=== PATIENT | female | born 1960 | race Two or more races ===

== ENCOUNTER 2024-12-25 15:22 | Emergency (ER) | payer MEDICAID, SELFPAY ==
[2024-12-25 15:29] VITALS: BP 150/71; PULSE 77; RESP 16; TEMP 36.8; O2SAT 97
[2024-12-25] MEDS: DIPHTH,PERTUSS(ACELL),TET VAC 0.5 ML SYR- ADULT IMi (16:01)
[2024-12-25] MEDS: cefTRIAXone SOD INJ 1,000 MG VIAL 1000 MG IM (16:01)
[2024-12-25] MEDS: LIDOCAINE HCL 1% 20 ML VIAL INFL (16:02)
[2024-12-25] MEDS: LIDOCAINE HCL 1% 20 ML VIAL 2.1 ML INFL (16:02)
--- NOTE | 2024-12-25 16:58 | EDNOTE_ITS ---
Upper Extremity Injury RME/HPI General Chief Complaint: Hand/Wrist Problems Stated Complaint: RIGHT PINKY PAIN SHOOTING UP RIGHT ARM X 1 WK Time Seen by Provider: 12/25/24 15:27 Arrival date/time: 12/25/24 15:22 64-year-old female presents to the Emergency Department today for complaints of infection right hand fifth digit patient reports swelling to the distal aspect of the right hand fifth digit no recent injury reported Limitations: no limitations Related Data Home Medications ?Medication ?Instructions ?Recorded ?Confirmed benazepril 40 mg tablet (Lotensin) 40 mg PO QDAY #0 ta bs 02/22/14 05/02/18 hydrochlorothiazide 25 mg tablet 25 mg PO QAM #0 tabs 02/22/14 05/02/18 nifedipine 30 mg tablet,extended 30 mg PO QDAY ##0 05/02/18 release 24 hr (Procardia XL) Previous Rx's ?Medication ?Instructions ?Recorded amoxicillin 875 mg-potassium 1 tab PO Q12H #20 tabs clavulanate 125 mg tablet (Augmentin) naproxen 500 mg tablet 500 mg PO Q12H #40 tabs 03/12 benzonatate 100 mg capsule 100 mg PO BID PRN cough #14 caps 06/21/22 meloxicam 7.5 mg tablet 7.5 mg PO QDAY #10 tabs 05/27 02/13 cephalexin 500 mg tablet 500 mg PO TID 7 days #21 tab s 12/25/24 ibuprofen 600 mg tablet 600 mg PO Q8H PRN pain #20 t abs 12/25/24 Allergies Allergy/AdvReac Type Severity Reaction Status Date / Time tetracycline Allergy Severe Hives Verified 12/25/24 15:26 Review of Systems Review of Systems Systems Reviewed: All systems reviewed, normal except as documented Constitutional Constitutional: Reports system reviewed and no additional complaints, except as documented, Denies fever(s) and Denies headache(s) Eyes Eyes: Reports system reviewed and no additional complaints, except as documented and Denies blurry vision ENT Ears, Nose, Mouth, and Throat: Reports system reviewed and no additional complaints, except as documented, Denies headache(s), Denies nasal congestion and Denies nasal discharge Cardiovascular Cardiovascular: Reports system reviewed and no additional complaints, except as documented, Denies chest pain and Denies dyspnea Respiratory Respiratory: Reports system reviewed and no additional complaints, except as documented, Denies chest congestion, Denies cough and Denies dyspnea Gastrointestinal Gastrointestinal: Reports system reviewed and no additional complaints, except as documented and Denies abdominal pain Integumentary/Breasts Skin/Breast: Reports system reviewed and no additional complaints, except as documented, Denies rash and Reports other (Swelling dorsal aspect right hand fifth digit discoloration) Neurologic Neurologic: Reports system reviewed and no additional complaints, except as documented, Reports as per HPI and Denies headache(s) Past Medical History Past Medical History NEUROLOGIC: Positive Neurological Disorders (brain anurysm) CARDIAC: Positive Hypertension; Negative Congestive Heart Failure RESPIRATORY: Negative Chronic Obstructive Pulmonary Disease (COPD) GENITOURINARY: Negative Renal Disease ENDOCRINE: Negative Diabetes Mellitus Type 1 or Diabetes Mellitus Type 2 Social History SMOKING STATUS: Light (< 1 pack/day) ED Exam General Limitations: Present no limitations General appearance: Present alert and in no apparent distress Head Head exam: Present atraumatic, normocephalic and normal inspection Eye Eye exam: Present normal appearance, PERRL and EOMI ENT ENT exam: Present normal exam, normal oropharynx and mucous membranes moist Neck Neck exam: Present normal inspection, full ROM and trachea midline Chest Chest inspection: Present normal inspection and symmetric chest wall rise Respiratory Respiratory exam: Present normal lung sounds bilaterally Cardiovascular Cardiovascular exam: Present regular rate, normal rhythm and normal heart sounds Abdominal Exam Abdominal exam: Present soft and normal bowel sounds Extremities Exam Extremities exam: Present full ROM, tenderness, normal capillary refill and other (Pain right hand fifth digit swelling) Back Exam Back exam: Present normal inspection and full ROM Neurological Exam Neurological exam: Present alert, oriented X3, CN II-XII intact, normal gait and reflexes normal; Absent motor sensory deficit Psychiatric Psychiatric exam: Present normal affect and normal mood Skin Skin exam: Present warm, dry and other (Pain right hand fifth digit swelling) Course Quality Measures none Orders Category Date Time Status Set Up Suture Tray STAT Care 12/25/24 15:44 Active Wound Care NOW Care 12/25/24 15:44 Active Lidocaine 1% 20 ml [Xylocaine 1% 20 ML] Med 12/25/24 15:44 Discontinued 2.1 ml INFL X1 ONE Lidocaine 1% 20 ml [Xylocaine 1% 20 ML] Med 12/25/24 15:44 Discontinued 20 ml INFL X1 ONE TET,DIP/PERT AC (Adult)-Tdap [Boostrix Adult (Tdap) Med 12/25/24 15:44 Discontinued Vacc] 0.5 ml IMI .ONCE ONE cefTRIAXone [Rocephin] Med 12/25/24 15:44 Discontinued 1,000 mg IM X1 ONE Vital Signs Vital signs: Vital Signs Temperature 98.2 F 12/25/24 15:29 Pulse Rate 77 12/25/24 15:29 Respiratory Rate 16 12/25/24 15:29 Blood Pressure 150/71 H 12/25/24 15:29 Pulse Oximetry (%) 97 12/25/24 15:29 Oxygen Delivery Method Room Air 12/25/24 15:29 O2 saturation 97% room air with normal limits Procedures -ED Abscess I/D Site: hand Side (if applicable): right Local Anesthetic: lidocaine 1% Amount of anesthesia used (mL): 5 Technique: incised with #11 blade Amount of fluid expressed (mL): 3 Irrigation: Yes Packing used?: none Complications: pain Extremity Injury MDM Narrative MDM Narrative:: 64-year-old female presents to the Emergency Department today for complaints of infection right hand fifth digit patient reports swelling to the distal aspect of the right hand fifth digit no recent injury reported On exam patient has paronychia right hand fifth digit I&D performed patient tolerated well Both blood and pus is expressed from the area patient did have some relief after procedure Patient given Rocephin and tetanus updated Patient discharged home in no distress to follow-up with primary care doctor in the next 24 to 48 hours and for any worsening symptoms to return to the ER immediately Patient data External records reviewed:: [facility] previous records Clinical information provided by:: patient Social determinants that could affect healthcare access:: none Patient has the following chronic illnesses:: None How is presenting disease/condition affected by chronic disease/condition?: no chronic disease Evaluation data The following diagnostics were reviewed and interpreted by me:: other (specify) (N/A) Lab and/or radiology exams considered but not ordered:: Considered not ordered Interpretation Summary: N/A Medications / Prescriptions Medications or Prescriptions considered but not ordered:: Given Medication administrations:: Medication Administration History Discontinued Medications Ceftriaxone Sodium (Ceftriaxone Sod Inj 1,000 Mg Vial) 1,000 mg IM X1 ONE Stop: 12/25/24 15:45 Last Admin: 12/25/24 16:01 Dose: 1,000 mg Documented By: OA Diphtheria/Tetanus/Acell Pertussis (Diphth,Pertuss(Acell),Tet Vac 0.5 Ml Syr- Adult) 0.5 ml IMi .ONCE ONE Stop: 12/25/24 15:45 Last Admin: 12/25/24 16:01 Dose: 0.5 ml Documented By: SHARMILA Lidocaine HCl (Lidocaine Hcl 1% 20 Ml Vial) 20 ml INFL X1 ONE Stop: 12/25/24 15:45 Last Admin: 12/25/24 16:02 Dose: 20 ml Documented By: OA Lidocaine HCl (Lidocaine Hcl 1% 20 Ml Vial) 2.1 ml INFL X1 ONE Stop: 12/25/24 15:45 Last Admin: 12/25/24 16:02 Dose: 2.1 ml Documented By: OA Given Consultations Consultation(s) initiated? (list below): No Diagnosis Upper Extremity Injury Differential Diagnosis: other (Finger sprain, finger pain, abscess, cellulitis, paronychia) Most likely diagnosis given after review of the tests above:: Paronychia Admission Indicated Admission indicated?: not indicated Admission Request Was there a request for admission?: No Disposition Plan Disposition Plan: Discharge Discharge Attestation Discharge Attestation: The patient and all family members were given an opportunity to ask questions and understood the discharge instructions. Discharge instructions specifically effects, indications for sooner follow up or return to the emergency department, and the expected course of current diagnosis. Patient condition: Stable Discharge Plan Plan Patient Disposition: HOME (Self Care) Discharge Disposition comment: Stable Prescriptions/Referrals Prescriptions/Med Rec: New cephalexin 500 mg tablet 500 mg PO TID 7 Days Qty: 21 0RF ibuprofen 600 mg tablet 600 mg PO Q8H PRN (Reason: pain) Qty: 20 0RF No Action nifedipine [Procardia XL] 30 MG/BOTTLE tablet extended release 24 hr 30 mg PO QDAY Qty: 0 hydrochlorothiazide 25 MG tablet 25 mg PO QAM Qty: 0 benazepril [Lotensin] 40 MG tablet 40 mg PO QDAY Qty: 0 naproxen 500 mg tablet 500 mg PO Q12H Qty: 40 0RF Rx Instructions: administer with food or milk amoxicillin-pot clavulanate [Augmentin] 875-125 mg tablet 1 tab PO Q12H Qty: 20 0RF benzonatate 100 mg capsule 100 mg PO BID PRN (Reason: cough) Qty: 14 0RF meloxicam 7.5 mg tablet 7.5 mg PO QDAY Qty: 10 0RF Problem List Clinical Impression: Paronychia, finger Patient/Caregiver Discharge Instructions Education Materials: ED Cellulitis Additional Instructions: Please follow up with your primary care doctor in the next 24-48hrs for any worsening symptoms return here immediately Print Language: Indonesian Stand Alone Forms: Tatyana Award Info., Patient Portal Info Letter Vaccines Vaccines Given During Stay: TDaP PA/DRIVER TRAINER Supervising Physician PA/DRIVER TRAINER Supervising Physician: Dr. harry
== END 2024-12-25 20:39 | disposition home or self-care (01) ==
PROVIDERS: Emergency Provider Emergency Medicine
DX: L03.011 Cellulitis of right finger (principal); Z23 Encounter for immunization
CPT/HCPCS: 10140; 90471; 90715; 96372; 99283; J0696; J3490